=== PATIENT | female | born 1975 ===

== ENCOUNTER → 2018-02-13 | Outpatient (REF) | payer BC ==
[2018-02-13 15:04] LABS: ESTRADIOL 61.9 PG/ML
== END ==
LOC: M LABDRAWC 11:56
DX: Z31.83 Encounter for assisted reproductive fertility procedure cycle (principal)
CPT/HCPCS: 82670

== ENCOUNTER → 2018-02-15 | Outpatient (REF) | payer BC ==
[2018-02-15 12:32] LABS: ESTRADIOL 408.8 PG/ML
== END ==
LOC: M LABDRAWC 11:46
DX: Z31.83 Encounter for assisted reproductive fertility procedure cycle (principal)
CPT/HCPCS: 82670